=== PATIENT | female | born 1960 | race Caucasian/White ===

== ENCOUNTER 2017-10-16 09:30 | Emergency (ER) | payer OTHER ==
[2017-10-16 09:40] VITALS: TEMP 98.9; BMI 32.3
[2017-10-16] MEDS ORDERED: ONDANSETRON 4 MG TABLET PO ONE (10:07)
[2017-10-16] MEDS ORDERED: PANTOPRAZOLE SODIUM 40 MG VIAL IVPUSH ONE (10:07)
[2017-10-16] MEDS ORDERED: MAG HYDROX/AL HYDROX/SIMETH 30 ML UNIT-DOSE CUP PO ONE (10:07)
[2017-10-16] MEDS ORDERED: LIDOCAINE VISCOUS 2% ORAL/TOP 100 ML BOTTLE MM ONE (10:07)
--- NOTE | 2017-10-16 10:07 | PDOC ---
History of Present Illness - General Chief Complaint: Pain Stated Complaint: ABD PAIN Time Seen by Provider: 10/16/17 09:53 History Source: Patient, Family - History of Present Illness Initial Comments: 56 y/o female presenting to [facility] ER complaining of two weeks of abdominal pain. States she feels a burning sensation throughout both lower quadrants, as well as in her throat. Was evaluated at urgent care earlier in the week and diagnosed with "bowel inflammation," reportedly based on an abdominal plain film. Received Cipro and Flagyl. Has taken abx as prescribed without relief. Past History - Past Medical History Allergies/Adverse Reactions: Allergies Allergy/AdvReac Type Severity Reaction Status Date / Time No Known Allergies Allergy Verified 10/16/17 09:40 Home Medications: Ambulatory Orders Levothyroxine [Synthroid -] 137 mcg PO DAILY 11/13/14 Albuterol Sulfate Inhaler - [Ventolin Hfa Inhaler -] 2 puff IH BID 10/16/17 Ciprofloxacin HCl [Cipro] 500 mg PO BID 10/16/17 Metronidazole 500 mg PO TID 10/16/17 Ondansetron [Zofran -] 4 mg PO Q8H #10 tablet 10/16/17 Sucralfate [Carafate -] 1 gm PO Q6H #28 tablet 10/16/17 COPD: No Thyroid Disease: Yes - Surgical History Abdominal Surgery: Yes (hernia) - Immunization History Immunization Up to Date: Yes - Suicide/Smoking/Psychosocial Hx Smoking History: Never smoked Have you smoked in the past 12 months: No Information on smoking cessation initiated: No Hx Alcohol Use: No Drug/Substance Use Hx: No Substance Use Type: Alcohol Review of Systems - Review of Systems Able to Perform ROS?: Yes Is the patient limited [place] proficient: No Constitutional: No: Chills, Diaphoresis, Fever ABD/GI: Yes: Nausea, Poor Appetite, Indigestion, Abdominal cramping Hematologic/Lymphatic: No: Easy Bleeding, Easy Bruising *Physical Exam - Vital Signs Last Vital Signs Temp Pulse Resp BP Pulse Ox 98.9 F 76 18 145/85 99 10/16/17 09:37 10/16/17 09:37 10/16/17 09:37 10/16/17 09:37 10/16/17 09:37 - Physical Exam General Appearance: Yes: Appropriately Dressed. No: Apparent Distress HEENT: positive: Normal Voice Neck: positive: Supple Respiratory/Chest: positive: Lungs Clear, Normal Breath Sounds Cardiovascular: positive: Regular Rhythm, Regular Rate Gastrointestinal/Abdominal: positive: Tender (Mildly tender in LLQ without rebound or guarding.), Soft ED Treatment Course - LABORATORY CBC & Chemistry Diagram: 10/16/17 10:40 10/16/17 10:40 Medical Decision Making - Medical Decision Making 56 y/o female presenting with two weeks of abdominal pain s/p outpatient Cipro and Flagyl. Afebrile. Vitals unremarkable. Will obtain abdominal CT given duration of pain. Suspect diverticulosis versus mesenteric ischemia. Low suspicion for diverticulitis as pt is not febrile. Low suspicion for obstruction. 10/16/17 16:49 Pt reassessed. States burning sensation has almost resolved. Continues to feel pain in lower left side. Appears more comfortable than upon arrival. Awaiting CTA radiology report. CTA revealed colonic diverticulosis without evidence of acute diverticulitis. No evidence of acute ischemia. Pt informed of laboratory and imaging results. Answered all questions. Provided return precautions. Pt expressed verbal understanding and agreement with plan to discharge home with outpatient GI follow up. Prescribed Zofran and Carafate for symptom relief. *DC/Admit/Observation/Transfer Diagnosis at time of Disposition: Diverticulosis of colon - Discharge Dispostion Disposition: HOME Condition at time of disposition: Good Decision to Admit order: No - Prescriptions Prescriptions: Ondansetron [Zofran -] 4 mg PO Q8H #10 tablet Sucralfate [Carafate -] 1 gm PO Q6H #28 tablet - Referrals Referrals: Bartolo Cesar [Primary Care Provider] - - Patient Instructions Printed Discharge Instructions: DI for Diverticulosis Additional Instructions: Your CT scan showed diverticlosis in your colon. I have attached copies of your results and CT scan to this packet. Take this packet to your doctor's appointments. You will need to follow up with your GI doctor, Dr. Mcgovern, within the next week. You will need to call the office to make an appointment. You should also follow up with your primary care doctor. I have sent two prescriptions to your pharmacy. The first is for Zofran. Take this medication as directed for nausea. The second is Carafate. Take it 1 hour before meals and at bedtime. Please come back to the emergency department if your condition worsens or you feel like you need additional emergency evaluation. Print Language: LITHUANIAN - Post Discharge Activity
[2017-10-16] MEDS ORDERED: SODIUM CHLORIDE 0.9% 500 ML INFUS.BAG IV ONE (10:08)
[2017-10-16] MEDS ORDERED: LIDOCAINE VISCOUS 2% ORAL/TOP 20 ML UNIT-DOSE CUP ONE (10:21)
[2017-10-16] MEDS ORDERED: ONDANSETRON *ODT* 4 MG TABLET ONE (10:21)
[2017-10-16] MEDS ORDERED: MAG HYDROX/AL HYDROX/SIMETH 30 ML UNIT-DOSE CUP ONE (10:21)
[2017-10-16] MEDS ORDERED: PANTOPRAZOLE SODIUM 40 MG VIAL ONE (10:22)
[2017-10-16 10:57] LABS: BASO % 0.9 % (0-2.0); EOS % 2.3 % (0-4.5); HEMOGLOBIN 14.9 GM/dL (10.7-15.3); LYMPH % 45.7 % (8-40); MCH 29.3 pg (25.7-33.7); MCHC 33.8 g/dl (32.0-36.0); MEAN CELL VOLUME 86.7 fl (80-96); MEAN PLT VOLUME 8.7 fl (7.5-11.1); MONO % 9.7 % (3.8-10.2); NEUT % 41.4 % (42.8-82.8); PLATELET COUNT 272 K/MM3 (134-434); RBC 5.08 M/mm3 (3.60-5.2); RDW 13.5 % (11.6-15.6); WHITE BLOOD COUNT 3.7 K/mm3 (4.0-10.0)
--- NOTE | 2017-10-16 11:07 | PDOC ---
Attending Attestation - Resident Resident Name: Octavio Mejía - ED Attending Attestation I have performed the following: I have examined & evaluated the patient, The case was reviewed & discussed with the resident, I agree w/resident's findings & plan, Exceptions are as noted - HPI HPI: 56 yo F history of prior abd surgery (R inguinal hernia repair, c-sections x2) presents with abd pain. Was evaluated in urgent care for the same, was told she had bowel inflammation after she had an abdominal flat plate. She has been taking quinolone and flagyl without relief. Denies fever. - Physicial Exam PE: GENERAL: Awake, alert, and fully oriented, in no acute distress. Appears uncomfortable. HEAD: No signs of trauma EYES: PERRLA, EOMI, sclera anicteric, conjunctiva clear ENT: Auricles normal inspection, hearing grossly normal, nares patent, oropharynx clear without exudates. Moist mucosa NECK: Normal ROM, supple, no lymphadenopathy, JVD, or masses LUNGS: Breath sounds equal, clear to auscultation bilaterally. No wheezes, and no crackles HEART: Regular rate and rhythm, normal S1 and S2, no murmurs, rubs or gallops ABDOMEN: Soft, diffusely tender, +hyperactive bowel sounds. +Guarding, no rebound. No masses EXTREMITIES: Normal range of motion, no edema. No clubbing or cyanosis. No cords, erythema, or tenderness NEUROLOGICAL: Cranial nerves II through XII grossly intact. Normal speech, normal gait SKIN: Warm, Dry, normal turgor, no rashes or lesions noted. - Medical Decision Making Pt with pain despite outpatient treatment with abx. Given pain medication/GI cocktail. CTA obtained on account of elevated lactate (which improved with IV fluids). No acute findings.
[2017-10-16 11:58] LABS: ALBUMIN 4.3 g/dl (3.4-5.0); ANION GAP 9 MMOL/L (8-16); BILIRUBIN,TOTAL 1.1 mg/dL (0.2-1.0); BLOOD UREA NITROGEN 9 mg/dL (7-18); CALCIUM 9.3 mg/dL (8.5-10.1); CHLORIDE 107 mmol/L (98-107); CO2 29 mmol/L (21-32); CREATININE 0.6 mg/dL (0.55-1.02); GLUCOSE,RANDOM 96 mg/dL (74-106); SGOT/AST 50 U/L (15-37); SGPT/ALT 50 U/L (12-78); SODIUM 145 mmol/L (136-145); TOT PROT 7.5 g/dl (6.4-8.2)
[2017-10-16 11:59] LABS: ALK PHOS 111 U/L (45-117)
[2017-10-16] MEDS ORDERED: KETOROLAC TROMETHAMINE 10 MG TABLET PO ONE (12:59)
[2017-10-16] MEDS ORDERED: traMADol HCL 50 MG TABLET PO ONE (13:14)
[2017-10-16] MEDS ORDERED: traMADol HCL 50 MG TABLET ONE (13:16)
[2017-10-16 18:10] VITALS: BP 131/94; PULSE 66
== END 2017-10-16 18:10 | disposition home or self-care (01) ==
LOC: JER 09:30
PROC: 3E033GC Introduction of Other Therapeutic Substance into Peripheral Vein, Percutaneous Approach (ICD-10-PCS; principal; 2017-10-16)
DX: K57.90 Diverticulosis of intestine, part unspecified, without perforation or abscess without bleeding (principal); E03.9 Hypothyroidism, unspecified
CPT/HCPCS: 36415; 74174-TC; 80053; 82272; 83605; 83690; 85025; 99283-25